=== PATIENT | female | born 1975 | race Caucasian/White ===

== ENCOUNTER → 2016-11-08 | Outpatient (CLI) | payer OTHER ==
[~2016-11-08] MED LIST: AMIT25TA9 PO; OXYC-471 PO; RANI150T15 PO
--- OUTSIDE RECORDS SUMMARY | 2016-11-08 13:31 | XMS REPORT | Continuity of Care Document ---
Author Author [facility] Organization [facility] Address Unknown Phone Unavailable Care Team Providers Care Digital Press Operator Name Role Phone PCP Unavailable Source Comments Some departments are not documenting in the electronic medical record. If you do not see the information that you expected, contact Release of Information in the Health Information Management department at [phone] for further assistance in locating additional records.[facility] Active Allergies and Adverse Reactions Not on File Current Medications Not on file Active Problems Not on file Social History Tobacco Use Types Packs/Day Years Used Date Never Assessed Plan of Care Health Maintenance Due Date Last Done Comments Physical (Comprehensive) 1981 Exam Pertussis Vaccine 1985 Tetanus Vaccine 1991 Cervical Cancer Screening 1995 Influenza Vaccine 06/16/2016 Results from Last 3 Months Not on file
--- NOTE | 2016-11-08 14:51 | Diagnostic Imaging Report ---
PROCEDURE: MRI right joint upper extremity without contrast. TECHNIQUE: Multiplanar, multisequence non contrast-enhanced MRI of the right upper extremity was accomplished. INDICATION: Right shoulder pain. FINDINGS: On the T2 fat-saturated coronal series, there are small areas of increased signal within the substance of the rotator cuff. These may be secondary to tendinosis alone. There is no sign of a tear of the rotator cuff, and the supraspinatus muscle is not retracted or bunched. There is hypertrophy of the acromioclavicular joint, and there does not appear to be any significant narrowing of the outlet for the supraspinatus muscle. The biceps tendon and the subscapularis tendon are intact. The labrum seems to be intact. There is no abnormal signal arising from the osseous structures to suggest bone edema or a fracture. There is no sign of a joint effusion. IMPRESSION: 1. There is mild tendinosis of the rotator cuff. The rotator cuff appears to be intact, and the supraspinatus muscle is not retracted or bunched. 2. There is hypertrophy of the acromioclavicular joint, but there is no narrowing of the outlet for the supraspinatus muscle. 3. The labrum is intact. 4. There is no sign of an acute bony abnormality. Dictated by: Dictated on workstation # [id number]
== END ==
LOC: RAD 13:27
PROVIDERS: ATTEND Nurse Practitioner Family
DX: M25.511 Pain in right shoulder (principal)
CPT/HCPCS: 73221

== ENCOUNTER 2016-12-05 13:51 | Outpatient (CLI) | payer OTHER ==
[~2016-12-05] VITALS: Ht 170.2 cm; Wt 150.8 kg
--- OUTSIDE RECORDS SUMMARY | 2016-12-05 13:57 | XMS REPORT | Continuity of Care Document ---
Author Author [facility] Organization [facility] Address Unknown Phone Unavailable Care Team Providers Care Health Aid Name Role Phone PCP Unavailable Source Comments Some departments are not documenting in the electronic medical record. If you do not see the information that you expected, contact Release of Information in the Health Information Management department at [phone] for further assistance in locating additional records.[facility] Active Allergies and Adverse Reactions Not [...]
[2016-12-05] MEDS ORDERED: AMIT25TA9 PO (14:07)
[2016-12-05] MEDS ORDERED: RANI150T15 PO (14:07)
[2016-12-05 14:12] VITALS: BP 145/71
== END 2016-12-05 15:31 | disposition home or self-care (01) ==
LOC: PREOP 13:51
PROVIDERS: ATTEND Orthopaedic Surgery
DX: Z01.818 Encounter for other preprocedural examination (principal); Z11.2 Encounter for screening for other bacterial diseases; G56.01 Carpal tunnel syndrome, right upper limb; M75.101 Unspecified rotator cuff tear or rupture of right shoulder, not specified as traumatic
CPT/HCPCS: 87081

== ENCOUNTER 2016-12-07 07:43 | Day surgery (SDC) | payer OTHER ==
[~2016-12-07] VITALS: Ht 170.2 cm; Wt 150.8 kg
[~2016-12-07 07:43] MED LIST changes: -OXYC-471 PO
[2016-12-07 08:10] VITALS: BP 144/96
[2016-12-07] MEDS: LACTATED RINGERS 1,000 ML IV PRN ×2 (08:10→10:43)
[2016-12-07] MEDS ORDERED: NS (IVPB) 50 ML ONE (08:19)
[2016-12-07] MEDS ORDERED: ceFAZolin 1,000 MG (ANCEF) VIAL ONE (08:19)
--- OUTSIDE RECORDS SUMMARY | 2016-12-07 08:32 | XMS REPORT | Continuity of Care Document ---
Author Author [facility] Organization [facility] Address Unknown Phone Unavailable Care Team Providers Care School Transportation Supervisor Name Role Phone PCP Unavailable Source Comments Some departments are not documenting in the electronic medical record. If you do not see the information that you expected, contact Release of Information in the Health Information Management department at [phone] for further assistance in locating additional records.[facility] Active Allergies and Adverse Reactions Not on [...]
--- OUTSIDE RECORDS SUMMARY | 2016-12-07 08:33 | XMS REPORT | Continuity of Care Document ---
Author Author [facility] Organization [facility] Address Unknown Phone Unavailable Care Team Providers Care Director Of Payroll Name Role Phone PCP Unavailable Source Comments Some departments are not documenting in the electronic medical record. If you do not see the information that you expected, contact Release of Information in the Health Information Management department at [phone] for further assistance in locating additional records.[facility] [...]
[2016-12-07] MEDS ORDERED: ceFAZolin 1 GM/NS 50 ML IVPB IV ONE ×2 (08:45)
[2016-12-07] MEDS ORDERED: CATHETER FLUSH 10 ML SYR IV PRN (08:45)
[2016-12-07] MEDS ORDERED: BUPIVACAINE 0.25% 30 ML (SENSORCAINE) VIAL ONE (08:58)
[2016-12-07] MEDS ORDERED: morphine PF (DURAMORPH) 10 MG/10 ML AMP ONE (08:58)
[2016-12-07] MEDS ORDERED: LIDOCAINE JELLY 2% (XYLOCAINE) 5 ML TUBE ONE (09:05)
[2016-12-07] MEDS ORDERED: ONDANSETRON 4 MG/2 ML (SDV) Z0FRAN ONE (09:05)
[2016-12-07] MEDS ORDERED: MIDAZOLAM 2 MG/2 ML (VERSED) VIAL ONE (09:05)
[2016-12-07] MEDS ORDERED: proPOfol 200 MG/20 ML (DIPRIVAN) VIAL IV ONE (09:05)
[2016-12-07] MEDS ORDERED: LACTATED RINGERS 1,000 ML IV ONE ×2 (09:05→10:39)
[2016-12-07] MEDS ORDERED: fentaNYL INJECTION 100 MCG/2 ML AMP ONE (09:05)
[2016-12-07] MEDS ORDERED: LIDOCAINE PF 2% 10 ML (XYLOCAINE) AMP ONE (09:05)
[2016-12-07] MEDS ORDERED: ROCURONIUM 50 MG/5 ML (ZEMURON) VIAL IV ONE (09:05)
[2016-12-07] MEDS ORDERED: oxyCODONE/APAP 5/325MG (PERCOCET 5) TABLET PO PRN (09:15)
[2016-12-07] MEDS ORDERED: SEVOFLURANE (ULTANE) 15 ML INHAL SOLN ONE (09:45)
[2016-12-07] MEDS ORDERED: morphine INJ 10 MG/ML 1ML (SYR OR VIAL) ONE (09:56)
--- NOTE | 2016-12-07 10:17 | Progress Note-Pre Operative ---
Pre-Operative Progress Note H&P Reviewed The H&P was reviewed, patient examined and no changes noted. Date H&P Reviewed: Dec 07, 2016 Time H&P Reviewed: 09:00 Pre-Operative Diagnosis: right SLAP tear, impingement and carpal tunnel syndrome JOCELINE XIE MD Dec 07, 2016 10:16
--- NOTE | 2016-12-07 10:20 | Progress Note-Post Operative ---
Post-Operative Progess Note Software Security Consultant Kishan Bruce Pre-Operative Diagnosis right SLAP tear, impingement and carpal tunnel syndrome Post-Operative Diagnosis right SLAP tear, labral tear and shoulder impingement and right carpal tunnel syndrome Post-Op Procedure Note Date of Procedure: Dec 07, 2016 Name of Procedure: right shoulder arthroscopic biceps tenotomy, labral debridement, acromioplasty and open carpal tunnel release Anesthesia Type GETA Estimated blood loss (mL): 100 ml Packing: none Specimen(s) collected none JOCELINE XIE MD Dec 07, 2016 10:20
[2016-12-07] MEDS ORDERED: OXYC-471 PO (10:35)
[2016-12-07] MEDS ORDERED: morphine INJ 10 MG/ML 1ML (SYR OR VIAL) IVP PRN (10:45)
[2016-12-07] MEDS ORDERED: ONDANSETRON 4 MG/2 ML (SDV) Z0FRAN IVP PRN (10:45)
[2016-12-07] MEDS ORDERED: MEPERIDINE (DEMEROL) INJ 50 MG/ML IVP PRN (10:45)
[2016-12-07 11:20] VITALS: BP 104/57
[2016-12-07 11:50] VITALS: BP 137/78
[2016-12-07 12:20] VITALS: BP 130/75
--- NOTE | 2016-12-08 09:49 | OPERATIVE REPORT ---
PROCEDURE PHYSICIAN: JOCELINE XIE DATE OF PROCEDURE: 12/07/2016 PREOPERATIVE DIAGNOSIS: 1. Right shoulder SLAP tear. 2. Right shoulder impingement. 3. Right carpal tunnel syndrome. POSTOPERATIVE DIAGNOSIS: 1. Right shoulder SLAP tear. 2. Right shoulder labral tear. 3. Right shoulder impingement. 4. Right carpal tunnel syndrome. PROCEDURES: 1. Right shoulder arthroscopic biceps tenotomy. 2. Right shoulder arthroscopic labral debridement. 3. Right shoulder arthroscopic acromioplasty. 4. Right open carpal tunnel release. SURGEON: Niurka HOOF TRIMMER: Kishan Bruce who assisted throughout the procedure and closed the incisions. ANESTHESIA: General endotracheal by Kishan Stapleton CRNA. TOURNIQUET TIME: Approximately 5 minutes on the right wrist using an Esmarch. ESTIMATED BLOOD LOSS: Minimal. DRAINS: None. COMPLICATIONS: None. POSTOPERATIVE PLAN: Sling wear for comfort with progressive range of motion as symptoms allow. The patient was transported to the recovery room, awake and in stable condition. STATEMENT OF MEDICAL NECESSITY: The patient is a 41-year-old, [id number] female with complaints of right hand pain and paresthesias. She had a positive Tinel's and carpal tunnel, positive Phalen's maneuver. She complained of pain with repetitive activities was interfering with activities of daily living. She also had a positive [place]'s maneuver positive Neer and Hinkle sign and an MRI which revealed right rotator cuff tendinosis. Due to functional impairment and failure to improve with conservative measures the patient elected to proceed with surgical intervention. Examination under anesthesia revealed forward elevation of the right shoulder 170 degrees, external rotation 90 degrees, internal rotation 80 degrees. Arthroscopic findings: Rotator cuff was intact throughout. There was a type II SLAP tear. There was flap tear of the anterior labrum from the 2 to 3 o'clock positions. There was no further detachment of the capsule labral complex. There was no significant glenoid or humeral head articular wear. The subacromial space demonstrated dense bursitis with no rotator cuff tear, no in-sloping of anterolateral acromion was noted. PROCEDURE: After risks and benefits of the procedure were discussed and questions were answered, an informed consent signed and placed on chart. The operative site was confirmed in the preoperative holding and initialed by the surgeon. The patient was then transported to the operating room and after adequate levels of general endotracheal anesthetic were obtained, a timeout was called confirming the operative site. The right shoulder and upper extremity were prepped and draped in the usual sterile fashion. With the arm elevated, an Esmarch was used to exsanguinate up to the mid forearm. The Esmarch was used as a tourniquet. A longitudinal incision was then made in line with the radial border of the ring finger over the transverse carpal ligament. The underlying soft tissues were bluntly dissected exposing the transverse carpal ligament which was then incised longitudinally under direct visualization. The median nerve was identified and carefully protected throughout the procedure. This was confirmed fully released distally under direct visualization and with a [place]. Proximally the transverse carpal ligament was spread above and below and while protecting the median nerve the proximal extent was released with slightly open scissor edges. Under direct visualization this was confirmed fully freed with a [place]. The Esmarch was released and the wound was copiously irrigated and then closed with 4-0 nylon in running, alternating horizontal mattress fashion. The right shoulder was then injected with 20 mL of fluid as was the subacromial space and a standard posterior portal was placed. Under direct visualization anterior portal was created and a diagnostic arthroscopy was carried out the above findings noted. The biceps anchor was released and the stump was debrided with a shaver. The anterior labral flap was debrided with a shaver as well. The scope was then redirected in the subacromial space and a lateral portal was created. Bursectomy was performed and acromion was planed to a flat type I acromion. The shoulder joint was copiously irrigated. Port sites closed with 4-0 nylon in a simple interrupted fashion. The shoulder joint was injected Duramorph. Portal sites were infiltrated with plain Marcaine. A soft dressing was applied and a sling and the patient was transported to the recovery room, awake, in stable condition. Job ID: [id number] Dictated Date: 12/07/2016 10:18:39 [place] Date: 12/08/2016 09:38:17 / juan alberto
== END 2016-12-07 13:00 | disposition home or self-care (01) ==
LOC: SDC 07:43
PROVIDERS: ATTEND Orthopaedic Surgery
DX: S43.431A Superior glenoid labrum lesion of right shoulder, initial encounter (principal); M75.41 Impingement syndrome of right shoulder; G56.01 Carpal tunnel syndrome, right upper limb

== ENCOUNTER → 2017-02-17 | Outpatient (CLI) | payer OTHER ==
[~2017-02-17] MED LIST changes: +OXYC-471 PO
--- NOTE | 2017-02-17 17:07 | Diagnostic Imaging Report ---
PROCEDURE: MR imaging cervical spine without contrast. TECHNIQUE: Multiplanar, multisequence MR imaging of the cervical spine was performed without contrast. INDICATION: Right arm pain since 08/2016. FINDINGS: Noncontrasted images. There is straightening of the normal lordotic curve. Alignment is otherwise good. Body height is well maintained. Atlantoaxial joint is in good alignment. There is a large extruded disc fragment present at C6-C7. This extends slightly more prominent to the right and extends into the right neural foramen. This is causing marked compression of the cervical cord and right nerve root sleeve in the lateral recess. There is no bony spinal stenosis. Residual AP central canal at the level of the disc herniation is 6 mm. The remaining discs show normal contour. There is compression of the cervical cord though no evidence of increased T2 signal to suggest myelomalacia. Central canal is not dilated. There is noted sclerotic change of the superior endplate of C7 consistent with chronic disc disease. The surrounding soft tissues appear normal. IMPRESSION: 1. Rather large extruded disc fragment at C6-C7 extending eccentric to the right causing considerable compression of the right nerve root sleeve in the lateral recess and neural foramen. This is causing compression of the cord though there is no evidence of myelomalacia. 2. Remaining discs appear normal. 3. There is no evidence of bony spinal stenosis. Report will be called 02/20/2017/devon Report was FAXED and called to Wes/access control officer of Dr. Bah by tom at 8:59 am. Dictated by: Dictated on workstation # [id number]
== END ==
LOC: RAD 13:54
PROVIDERS: ATTEND Orthopaedic Surgery
DX: M50.123 Cervical disc disorder at C6-C7 level with radiculopathy (principal)
CPT/HCPCS: 72141

== ENCOUNTER → 2017-06-29 | Outpatient (CLI) | payer OTHER ==
--- NOTE | 2017-06-29 17:03 | Diagnostic Imaging Report ---
EXAMINATION: Right lower extremity duplex venous ultrasound. TECHNIQUE: DVT protocol. Multiple sonographic images with color Doppler and waveform interrogation were performed of the right lower extremity veins with compression and augmentation maneuvers. INDICATION: Right leg swelling. FINDINGS: The right lower extremity veins from the groin to below the knee veins were examined with normal color-flow, compressibility and normal waveform demonstrated. The great saphenous vein is patent. IMPRESSION: No evidence of DVT in the right lower extremity. Dictated by: Dictated on workstation # [id number]
== END ==
LOC: RAD 16:38
PROVIDERS: ATTEND Nurse Practitioner Community Health
DX: M79.89 Other specified soft tissue disorders (principal)